=== PATIENT | female | born 1940 | race Caucasian/White ===

== ENCOUNTER → 2023-07-26 | Outpatient (CLI) | payer MEDICARE, BC ==
[~2023-07-26] MED LIST: DUO-KAPS1 CAP PO; LEVAQUIN 5500 MG/TA1 PO; PREDNISONE20 MG PO; PROAIR HFA0.09 MG/AC IH; ZOFRAN ODT4 MG PO
== END ==
LOC: COL.LAB 16:10
DX: M25.532 Pain in left wrist (principal)

== ENCOUNTER → 2023-10-03 | Outpatient (CLI) | payer MEDICARE, BC | LOC: MC.RAD 12:45 | DX: N63.15 Unspecified lump in the right breast, overlapping quadrants (principal) | CPT/HCPCS: A4648 ==

== ENCOUNTER 2023-10-24 08:13 | Day surgery (SDC) | payer MEDICARE, BC ==
[~2023-10-24] VITALS: Ht 147.3 cm; Wt 54.0 kg
[~2023-10-24 08:13] MED LIST changes: +LR 1,000 ML IV ONE
[2023-10-24] MEDS ORDERED: fentaNYL 50 MCG/ML 1 ML SYRINGE/VIAL [PACU/SDC ONLY] IV PRN (08:30)
[2023-10-24] MEDS ORDERED: HYDROmorphone 1 MG/1 ML SYRINGE [PACU/SDC ONLY] IV PRN (08:30)
[2023-10-24] MEDS ORDERED: Ondansetron 4 MG/2 ML VIAL IV PRN ×2 (08:30→14:15)
[2023-10-24] MEDS ORDERED: OMEGA-3 FISH1000 MG PO (09:24)
[2023-10-24] MEDS ORDERED: MULTIPLE VITAMI1 CAP PO (09:24)
[2023-10-24] MEDS ORDERED: THE MEDICINE S200 M2 PO (09:25)
[2023-10-24] MEDS ORDERED: MAGNESIUM200 MG PO (09:25)
[2023-10-24] MEDS ORDERED: VITAMINC1000TA (09:26)
[2023-10-24] MEDS ORDERED: VITAMIN D31000 I1 PO (09:26)
[2023-10-24 09:33] VITALS: BP 129/81; PULSE 95; TEMP 97.4
[2023-10-24] MEDS ORDERED: fentaNYL 50 MCG/ML 2 ML VIAL ONE (12:04)
[2023-10-24] MEDS ORDERED: Ondansetron 4 MG/2 ML VIAL ONE (12:05)
[2023-10-24] MEDS ORDERED: Lidocaine PF 2% (20 MG/ML) 5 ML VIAL ONE (12:05)
[2023-10-24] MEDS ORDERED: dexAMETHasone 10 MG/ML VIAL ONE (12:05)
[2023-10-24] MEDS ORDERED: NORCO 325 MG-51 TAB PO (14:12)
[2023-10-24] MEDS ORDERED: Morphine 4 MG/ML VIAL IV PRN (14:15)
[2023-10-24 14:40] VITALS: BP 143/81; PULSE 88; TEMP 97.6
[2023-10-24 15:00] VITALS: BP 142/72; PULSE 91
[2023-10-24 15:15] VITALS: BP 143/68; PULSE 95
--- NOTE | 2023-10-24 17:44 | NUR ---
1440- PT BACK FROM PACU TO BAY 4 VIA CART. MONITORS ON AND ALARMS SET. PT AWAKE AND ALERT. CALL LIGHT WITHIN REACH. NO PAIN OR NAUSEA. REPORT GIVEN BY BRITTANY JENSEN. PT REQUESTING FOOD AND DRINK. NO OTHER NEEDS AT THIS TIME. 1500- PT TAKING FOOD AND DRINK WELL. NO COMPLICATIONS. 1530- DISCHARGE INSTRUCTIONS GIVEN TO PT. ALL QUESTIONS ANSWERED. 1600- PT TRANSFERRED OUT OF THE HOSPITAL VIA WHEELCHAIR TAKEN OUT BY ANOTHER NURSE TO OWN PRIVATE VEHICLE DRIVEN BY PT'S FRIEND.
== END 2023-10-24 16:00 | disposition home or self-care (01) ==
LOC: SDCO 08:13
DX: C50.411 Malignant neoplasm of upper-outer quadrant of right female breast (principal); L57.0 Actinic keratosis; Z90.5 Acquired absence of kidney
CPT/HCPCS: A4648; A9520-JZ; J0665; J0690; J1100; J1170; J2405; J2704; J3010; J7120